=== PATIENT | female | born 1945 | race Caucasian/White ===

== ENCOUNTER 2022-12-23 15:34 | Inpatient (IN) | payer OTHER ==
[~2022-12-23] VITALS: Ht 165.1 cm; Wt 79.4 kg
[2022-12-23 15:34] VITALS: BP 143/56
[2022-12-23 16:08] LABS: BASO % 0.4 % (0.0-1.0); EOS # 0.1 10*3/uL (0.0-0.4); EOS % 1.3 % (1.0-4.0); HEMATOCRIT 32.2 % (37.0-47.0); LYMPH # 1.5 10*3/uL (1.3-4.4); LYMPH % 20.8 % (27.0-41.0); MEAN CELL VOLUME 85.9 fl (81.0-99.0); MEAN CORPUSCULAR HGB 29.1 pg (27.0-31.0); MEAN CORPUSCULAR HGB CONC 33.9 g/dl (33.0-37.0); MEAN PLATELET VOLUME 8.6 fl (9.6-12.3); MONO # 0.6 10*3/uL (0.1-1.0); MONO % 8.7 % (3.0-9.0); NEUT # 4.9 10*3/uL (2.3-7.9); NEUT % 68.5 % (47.0-73.0); PLATELET COUNT AUTOMATED 283 10*3/uL (130-400); RED BLOOD COUNT 3.75 10*6/uL (4.10-5.10); RED CELL DISTRI WIDTH 15.7 % (0-14.5); WHITE BLOOD COUNT 7.2 10*3/uL (4.8-10.8)
[2022-12-23 16:24] LABS: ALKALINE PHOSPHATASE 106 U/L (46-116); BUN 16 mg/dl (9-23); CHLORIDE 91 mmol/L (98-107); CPK 160 U/L (34-171); POTASSIUM 3.5 mmol/L (3.4-5.1); SGPT/ALT 28 U/L (10-49); TOTAL PROTEIN 6.7 gm/dL (6.0-8.0)
[2022-12-23 16:31] LABS: ETHYL ALCOHOL < 3.0 mg/dl (<3)
[2022-12-23 16:49] LABS: BILIRUBIN Negative (Negative); BLOOD Negative (Negative); CLARITY Cloudy (Clear); COLOR Yellow (Yellow); GLUCOSE Negative (Negative); KETONE Trace (Negative); LEUKO ESTERASE 2+ (Negative); NITRITE Negative (Negative); PH 7.5 (4.5-8.0)
[2022-12-23 17:28] LABS: BACTERIA 1+; RBC 0-2 rbc/hpf (0-2)
[2022-12-23 17:30] LABS: URINE AMPHETAMINES Negative (1000ng/ml); URINE BARBITURATES Negative (200ng/ml); URINE BENZODIAZEPINES Negative (200ng/ml); URINE CANNABINOIDS (THC) Negative (50ng/ml); URINE COCAINE Negative (300ng/ml); URINE METHADONE Negative (300ng/ml); URINE OPIATES Negative (300ng/ml); URINE PHENCYCLIDINE Negative (25ng/ml)
[2022-12-23] MEDS ORDERED: NORVASC5 MG PO (17:35)
[2022-12-23] MEDS ORDERED: AMOXICILLIN500 M2 PO (17:37)
[2022-12-23] MEDS ORDERED: ELIQUIS5 M1 PO (17:38)
[2022-12-23] MEDS ORDERED: L-ARGININE500 MG PO (17:39)
[2022-12-23] MEDS ORDERED: ASPIRIN CHEWABL81 MG PO (17:40)
[2022-12-23] MEDS ORDERED: ZYRTEC ALLERGY10 MG PO (17:40)
[2022-12-23] MEDS ORDERED: OSTERA TABLET1 EACH PO (17:41)
[2022-12-23] MEDS ORDERED: VOLTAREN ARTHRI20 GM T (17:42)
[2022-12-23] MEDS ORDERED: FEROSUL325 MG PO (17:43)
[2022-12-23] MEDS ORDERED: NEURONTIN300 MG PO (17:43)
[2022-12-23] MEDS ORDERED: HYDR25T PO (17:45)
[2022-12-23] MEDS ORDERED: Synthroid,Lev100 MCG PO (17:45)
[2022-12-23] MEDS ORDERED: COZAAR100 MG PO (17:46)
[2022-12-23] MEDS ORDERED: COZAAR50 M1 PO (17:46)
[2022-12-23] MEDS ORDERED: MYRBETRIQ50 M1 PO (17:47)
[2022-12-23] MEDS ORDERED: SINGULAIR10 M1 PO (17:48)
[2022-12-23] MEDS ORDERED: VISION PLUS LU1 EACH PO (17:49)
[2022-12-23] MEDS ORDERED: NITROGLYCERIN0.4 MG SL (17:51)
[2022-12-23] MEDS ORDERED: OMEPRAZOLE40 MG PO (17:52)
[2022-12-23] MEDS ORDERED: MIRALAX17 GM PO (17:53)
[2022-12-23] MEDS ORDERED: POTASSIUM CHLO20 ME3 PO (17:55)
[2022-12-23] MEDS ORDERED: PRAVASTATIN SOD40 MG PO (17:56)
[2022-12-23] MEDS ORDERED: STOOL SOFTENER100 M3 PO (18:00)
[2022-12-23] MEDS ORDERED: BUSPIRONE10 MG PO (18:19)
[2022-12-23] MEDS ORDERED: VRAYLAR1.5 MG PO (18:20)
[2022-12-23] MEDS ORDERED: CYMBALTA30 MG PO (18:22)
[2022-12-23] MEDS ORDERED: CYMBALTA60 MG PO (18:23)
[2022-12-23] MEDS ORDERED: ROZEREM8 MG PO (18:26)
[2022-12-23 18:48] VITALS: BP 137/64
[2022-12-23 19:39] VITALS: BP 141/63
[2022-12-23] MEDS ORDERED: BUSPIRONE HCL10 MG PO (20:30)
[2022-12-23] MEDS ORDERED: SENNA8.6 MG PO (20:36)
[2022-12-23] MEDS ORDERED: STOOL SOFT-STI1 EACH PO (20:38)
[2022-12-23 22:22] LABS: BUN 14 mg/dl (9-23); CHLORIDE 94 mmol/L (98-107); POTASSIUM 3.5 mmol/L (3.4-5.1)
[2022-12-24 00:31] VITALS: BP 127/53
[2022-12-24 05:53] VITALS: BP 111/56
[2022-12-24 06:49] LABS: BASO % 0.7 % (0.0-1.0); EOS # 0.1 10*3/uL (0.0-0.4); EOS % 2.2 % (1.0-4.0); HEMATOCRIT 30.9 % (37.0-47.0); LYMPH # 1.2 10*3/uL (1.3-4.4); MEAN CELL VOLUME 86.1 fl (81.0-99.0); MEAN CORPUSCULAR HGB 28.1 pg (27.0-31.0); MEAN CORPUSCULAR HGB CONC 32.7 g/dl (33.0-37.0); MEAN PLATELET VOLUME 8.6 fl (9.6-12.3); MONO # 0.5 10*3/uL (0.1-1.0); MONO % 10.3 % (3.0-9.0); NEUT # 2.8 10*3/uL (2.3-7.9); NEUT % 60.4 % (47.0-73.0); PLATELET COUNT AUTOMATED 279 10*3/uL (130-400); RED BLOOD COUNT 3.59 10*6/uL (4.10-5.10); RED CELL DISTRI WIDTH 15.6 % (0-14.5); WHITE BLOOD COUNT 4.6 10*3/uL (4.8-10.8)
[2022-12-24 07:21] LABS: ALKALINE PHOSPHATASE 97 U/L (46-116); BUN 12 mg/dl (9-23); CHLORIDE 96 mmol/L (98-107); CHOLESTEROL 99 mg/dL (<200); FREE T4 1.26 ng/dl (0.89-1.76); LDL CHOLESTEROL 53 mg/dL (9-159); POTASSIUM 3.7 mmol/L (3.4-5.1); SGPT/ALT 25 U/L (10-49); TOTAL PROTEIN 6.2 gm/dL (6.0-8.0); TRIGLYCERIDES 59 mg/dl (<150)
[2022-12-24 08:24] VITALS: BP 136/72
[2022-12-24 08:29] LABS: VITAMIN D, 25-HYDROXY 60.9 ng/mL (30-100)
[2022-12-24 11:13] VITALS: BP 136/67
[2022-12-24 14:37] VITALS: BP 138/73
[2022-12-24 15:35] VITALS: BP 148/79
== END 2022-12-24 16:55 | DRG 641 ==
LOC: ED 15:34 → EDHOLD 17:16 → ED 19:10 → EDHOLD 19:30
PROVIDERS: Emergency Medicine; Internal Medicine; ADMIT Internal Medicine; ATTEND Internal Medicine
DX: E87.1 Hypo-osmolality and hyponatremia (principal); R45.851 Suicidal ideations; N30.00 Acute cystitis without hematuria; E44.0 Moderate protein-calorie malnutrition; F33.9 Major depressive disorder, recurrent, unspecified; E03.9 Hypothyroidism, unspecified; I10 Essential (primary) hypertension; Z96.643 Presence of artificial hip joint, bilateral; D64.9 Anemia, unspecified; E87.8 Other disorders of electrolyte and fluid balance, not elsewhere classified; Z20.822 Contact with and (suspected) exposure to COVID-19; R73.9 Hyperglycemia, unspecified; M79.7 Fibromyalgia; M15.9 Polyosteoarthritis, unspecified; G47.419 Narcolepsy without cataplexy; K27.9 Peptic ulcer, site unspecified, unspecified as acute or chronic, without hemorrhage or perforation; F41.1 Generalized anxiety disorder; S31.104A Unspecified open wound of abdominal wall, left lower quadrant without penetration into peritoneal cavity, initial encounter; S31.103A Unspecified open wound of abdominal wall, right lower quadrant without penetration into peritoneal cavity, initial encounter; E78.2 Mixed hyperlipidemia; Z86.19 Personal history of other infectious and parasitic diseases; Z86.718 Personal history of other venous thrombosis and embolism; X58.XXXA Exposure to other specified factors, initial encounter; Y93.89 Activity, other specified; Z86.711 Personal history of pulmonary embolism; Z90.49 Acquired absence of other specified parts of digestive tract; Z98.84 Bariatric surgery status; Z88.8 Allergy status to other drugs, medicaments and biological substances; Z88.6 Allergy status to analgesic agent; Z91.040 Latex allergy status; Y92.89 Other specified places as the place of occurrence of the external cause; Y99.8 Other external cause status; Z68.38 Body mass index [BMI] 38.0-38.9, adult

== ENCOUNTER 2022-12-24 13:25 | Inpatient (IN) | payer OTHER ==
[~2022-12-24] VITALS: Ht 147.3 cm; Wt 83.9 kg
[~2022-12-24 13:25] MED LIST: AMOXICILLIN500 M2 PO; ASPIRIN CHEWABL81 MG PO; BUSPIRONE HCL10 MG PO; BUSPIRONE10 MG PO; COZAAR100 MG PO; COZAAR50 M1 PO; CYMBALTA30 MG PO; CYMBALTA60 MG PO; ELIQUIS5 M1 PO; FEROSUL325 MG PO; HYDR25T PO; L-ARGININE500 MG PO; MIRALAX17 GM PO; MYRBETRIQ50 M1 PO; NEURONTIN300 MG PO; NITROGLYCERIN0.4 MG SL; NORVASC5 MG PO; OMEPRAZOLE40 MG PO; OSTERA TABLET1 EACH PO; POTASSIUM CHLO20 ME3 PO; PRAVASTATIN SOD40 MG PO; ROZEREM8 MG PO; SENNA8.6 MG PO; SINGULAIR10 M1 PO; STOOL SOFT-STI1 EACH PO; STOOL SOFTENER100 M3 PO; Synthroid,Lev100 MCG PO; VISION PLUS LU1 EACH PO; VOLTAREN ARTHRI20 GM T; VRAYLAR1.5 MG PO; ZYRTEC ALLERGY10 MG PO
[2022-12-24 17:11] VITALS: BP 138/75
[2022-12-24 20:00] VITALS: BP 132/72
[2022-12-25 06:19] LABS: BASO % 0.7 % (0.0-1.0); EOS # 0.2 10*3/uL (0.0-0.4); EOS % 2.7 % (1.0-4.0); HEMATOCRIT 34.7 % (37.0-47.0); LYMPH # 1.8 10*3/uL (1.3-4.4); LYMPH % 31.9 % (27.0-41.0); MEAN CORPUSCULAR HGB 28.3 pg (27.0-31.0); MEAN CORPUSCULAR HGB CONC 32.6 g/dl (33.0-37.0); MEAN PLATELET VOLUME 8.5 fl (9.6-12.3); MONO # 0.6 10*3/uL (0.1-1.0); MONO % 10.3 % (3.0-9.0); PLATELET COUNT AUTOMATED 321 10*3/uL (130-400); RED BLOOD COUNT 3.99 10*6/uL (4.10-5.10); RED CELL DISTRI WIDTH 15.8 % (0-14.5); WHITE BLOOD COUNT 5.5 10*3/uL (4.8-10.8)
[2022-12-25 07:50] LABS: ALKALINE PHOSPHATASE 103 U/L (46-116); BUN 8 mg/dl (9-23); CHLORIDE 95 mmol/L (98-107); CHOLESTEROL 119 mg/dL (<200); LDL CHOLESTEROL 62 mg/dL (9-159); POTASSIUM 3.6 mmol/L (3.4-5.1); SGPT/ALT 25 U/L (10-49); TOTAL PROTEIN 7.2 gm/dL (6.0-8.0); TRIGLYCERIDES 67 mg/dl (<150)
[2022-12-25 08:00] VITALS: BP 133/63
[2022-12-25 09:04] LABS: VITAMIN D, 25-HYDROXY 56.5 ng/mL (30-100)
[2022-12-25 20:00] VITALS: BP 124/63
[2022-12-26 08:00] VITALS: BP 124/61
[2022-12-26 20:00] VITALS: BP 117/68
[2022-12-27 06:26] LABS: BUN 12 mg/dl (9-23); CHLORIDE 98 mmol/L (98-107)
[2022-12-27 06:29] LABS: POTASSIUM 5.1 mmol/L (3.4-5.1)
[2022-12-27 07:17] VITALS: BP 120/59
[2022-12-27 20:00] VITALS: BP 122/52
[2022-12-28 08:00] VITALS: BP 130/65
[2022-12-28 20:00] VITALS: BP 115/64
[2022-12-29 07:18] VITALS: BP 147/68
[2022-12-29 20:00] VITALS: BP 122/55
[2022-12-30 06:51] LABS: BUN 12 mg/dl (9-23); CHLORIDE 97 mmol/L (98-107); POTASSIUM 4.4 mmol/L (3.4-5.1)
[2022-12-30 08:00] VITALS: BP 121/54
[2022-12-30 20:00] VITALS: BP 125/68
[2022-12-31 07:22] VITALS: BP 132/58
[2022-12-31] MEDS ORDERED: IMIPRAMINE HCL50 MG PO (09:47)
[2022-12-31] MEDS ORDERED: RAMELTEON8 MG PO (09:47)
[2022-12-31] MEDS ORDERED: CLONAZEPAM0.5 M2 PO (09:47)
== END 2022-12-31 12:27 | DRG 885 ==
LOC: 3N 13:25
PROVIDERS: Family Medicine; ADMIT Psychiatry & Neurology Psychiatry; ATTEND Psychiatry & Neurology Psychiatry
DX: F31.9 Bipolar disorder, unspecified (principal); B19.10 Unspecified viral hepatitis B without hepatic coma; E87.1 Hypo-osmolality and hyponatremia; R45.851 Suicidal ideations; D64.9 Anemia, unspecified; K27.9 Peptic ulcer, site unspecified, unspecified as acute or chronic, without hemorrhage or perforation; Z96.643 Presence of artificial hip joint, bilateral; F41.1 Generalized anxiety disorder; M79.7 Fibromyalgia; G47.419 Narcolepsy without cataplexy; I10 Essential (primary) hypertension; E78.5 Hyperlipidemia, unspecified; E87.8 Other disorders of electrolyte and fluid balance, not elsewhere classified; E03.9 Hypothyroidism, unspecified; R73.9 Hyperglycemia, unspecified; Z90.49 Acquired absence of other specified parts of digestive tract; Z90.710 Acquired absence of both cervix and uterus; Z88.6 Allergy status to analgesic agent; Z91.040 Latex allergy status; Z79.82 Long term (current) use of aspirin; Z79.899 Other long term (current) drug therapy